=== PATIENT | male | born 1955 | race Caucasian/White ===

== ENCOUNTER → 2016-12-16 | Outpatient (CLI) | payer OTHER ==
[~2016-12-16] MED LIST: ARTHROTEC 751 TABLET PO; ASPIRIN325 MG PO; TRAMADOL HCL50 MG PO
== END | disposition home or self-care (01) ==
DX: M17.12 Unilateral primary osteoarthritis, left knee (principal); R26.9 Unspecified abnormalities of gait and mobility; R29.3 Abnormal posture; M79.605 Pain in left leg; M25.562 Pain in left knee; M25.662 Stiffness of left knee, not elsewhere classified; M62.81 Muscle weakness (generalized); Z74.1 Need for assistance with personal care
CPT/HCPCS: 97110 GP; 97150 GO; 97161 GP; 97165 GO

== ENCOUNTER 2017-01-18 22:01 | Inpatient (IN) | payer OTHER ==
[~2017-01-18] VITALS: Ht 175.3 cm; Wt 97.5 kg
[~2017-01-18 22:01] MED LIST changes: +CELEBREX100 MG PO
[2017-01-19 05:57] VITALS: BP 111/70
[2017-01-19 11:54] VITALS: BP 132/74
[2017-01-19 14:00] VITALS: BP 123/68
[2017-01-19 15:59] VITALS: BP 144/74
[2017-01-19 19:33] VITALS: BP 140/71
[2017-01-20 00:06] VITALS: BP 143/71
[2017-01-20 04:17] VITALS: BP 135/69
[2017-01-20 06:37] LABS: HEMATOCRIT 36.8 % (38.0-50.0); MCV 90.6 FL (86-99)
[2017-01-20 07:05] LABS: ANION GAP 7 MEQ/L (2-14); CHLORIDE 105 MEQ/L (99-109); GFR ESTIMATE (CALCULATED) > 59 mL/min/; GLUCOSE 113 mg/dL (70-99); POTASSIUM 3.9 MEQ/L (3.7-5.4); SAMPLE HEMOLYSIS CHECK 0; SAMPLE ICTERIC CHECK 0; SAMPLE LIPEMIA CHECK 0; SODIUM 140 MEQ/L (136-147); UREA NITROGEN (BUN) 11 mg/dL (9-23)
[2017-01-20 08:19] VITALS: BP 148/77
[2017-01-20 12:01] VITALS: BP 118/64
[2017-01-20 15:45] VITALS: BP 142/74
[2017-01-20 19:45] VITALS: BP 144/69
[2017-01-21 00:25] VITALS: BP 139/67
[2017-01-21 04:07] VITALS: BP 140/65
[2017-01-21 05:36] LABS: HEMATOCRIT 36.8 % (38.0-50.0); MCV 90.9 FL (86-99)
[2017-01-21 08:07] VITALS: BP 125/70
[2017-01-21] MEDS ORDERED: ENDOCET 5-3251 EACH PO (08:45)
[2017-01-21] MEDS ORDERED: ELIQUIS2.5 MG PO (08:45)
[2017-01-21 11:31] VITALS: BP 140/79
== END 2017-01-21 13:43 | DRG 470 ==
LOC: ENRESERV 22:01 → 2SOUTH 01-19 05:29 → 3WEST 01-19 05:29 → 2SOUTH 01-19 09:33 → 3WEST 01-19 11:26 → 2SOUTH 01-19 14:00 → 3WEST 01-21 13:43
PROVIDERS: Orthopaedic Surgery
PROC: 0SRD0J9 Replacement of Left Knee Joint with Synthetic Substitute, Cemented, Open Approach (ICD-10-PCS; principal; 2017-01-19)
DX: M17.12 Unilateral primary osteoarthritis, left knee (principal); E78.5 Hyperlipidemia, unspecified; N40.0 Benign prostatic hyperplasia without lower urinary tract symptoms; N52.9 Male erectile dysfunction, unspecified; K21.9 Gastro-esophageal reflux disease without esophagitis; F17.290 Nicotine dependence, other tobacco product, uncomplicated; Z68.31 Body mass index [BMI] 31.0-31.9, adult
CPT/HCPCS: 80048; 85014; 85018; C1713; J0131; J0690; J1170; J1885; J2250; J7050; J7120